=== PATIENT | female | born 1940 | race Caucasian/White ===

== ENCOUNTER 2021-04-02 10:03 | Emergency (ER) | payer MEDICARE ==
[~2021-04-02] VITALS: Ht 160 cm; Wt 57.0 kg
--- NOTE | 2021-04-02 10:51 | NUR ---
PT HAD AN EPISODE OF N/V/D THIS AM AND SHAKY. WAS ABLE TO DRINK FLUIDS. DENIES CP OR SOB. FROM [place], VISITING FAMILY. STATES SHE FEELS BETTER.
[2021-04-02] MEDS ORDERED: ONDANSETRON 2MG/ML, 2ML ONE (11:51)
--- NOTE | 2021-04-02 11:53 | NUR ---
PT TO BATHROOM W FAMILY, UA SAMPLE NEEDED
[2021-04-02] MEDS ORDERED: SODIUM CHLORIDE FLUSH 10ML SYR IVF ONE (12:00)
[2021-04-02] MEDS ORDERED: ONDANSETRON 2MG/ML, 2ML IVPush ONE (12:00)
[2021-04-02] MEDS ORDERED: SODIUM CHLORIDE 0.9% 1,000ML IVBOLUS ONE (12:00)
--- NOTE | 2021-04-02 12:08 | NUR ---
IV, IVF, UA SENT.
[2021-04-02 12:23] LABS: MEAN CORPUSCULAR HEMOGLOBIN 32.1 pg (27.0-34.8); MEAN CORPUSCULAR HGB CONC 33.8 g/dL (32.4-35.8); PLATELET COUNT 151 x10^3/uL (130-400); RED BLOOD COUNT 3.96 x10^6/uL (3.82-5.3); RED CELL DISTRIBUTION WIDTH 13.4 % (9.6-15.2)
[2021-04-02 12:26] LABS: MICROSCOPIC AUTO
[2021-04-02 12:29] LABS: ALBUMIN 3.3 g/dL (3.4-5.0); ANION GAP 4 mmol/L (5-15); CALCIUM 9.5 mg/dL (8.5-10.1); CHLORIDE 105 mmol/L (98-107)
--- NOTE | 2021-04-02 12:32 | NUR ---
REFUSING ZOFRAN, NO NAUSEA
[2021-04-02 12:33] LABS: ALANINE AMINOTRANSFERASE 33 U/L (12-78); ALKALINE PHOSPHATASE 103 U/L (45-117); BILIRUBIN,TOTAL 1.1 mg/dL (0.2-1.0); CREATININE 0.69 mg/dL (0.55-1.02); TOTAL PROTEIN 7.1 g/dL (6.4-8.2)
[2021-04-02 12:34] VITALS: BP 114/60
--- NOTE | 2021-04-02 12:34 | NUR ---
MD GARCIA AT BEDSIDE
[2021-04-02] MEDS ORDERED: CEFTRIAXONE 1,000 MG in DEXTROSE 5% 50 ML IVPB ONE (13:00)
[2021-04-02 13:03] LABS: <PLATELET ESTIMATE> ADEQUATE; <PLT MORPHOLOGY> NORMAL PLT MORPH; <RBC MORPHOLOGY> NORMAL; BAND#(MANUAL) 0.66 x10^3/uL; BANDS%(MANUAL) 7 % (0-7); BASOS#(MANUAL) 0.09 x10^3/uL (0-0.1); BASOS% (MANUAL) 1 % (0-1); LYMPH#(MANUAL) 1.03 x10^3/uL (1-3.4); LYMPHS% (MANUAL) 11 % (22-44); MONOS#(MANUAL) 0.19 x10^3/uL (0.3-2.7); MONOS% (MANUAL) 2 % (2-9); SEG#(MANUAL) 7.43 x10^3/uL (1.8-6.8); SEGS% (MANUAL) 79 % (42-75)
--- NOTE | 2021-04-02 13:11 | NUR ---
BLOOD CULTURES DRAWN PRIOR TO ABX INFUSION.
--- NOTE | 2021-04-02 13:53 | NUR ---
Courtney High RN. Waiting for dispo orders.
== END 2021-04-02 14:15 | disposition home or self-care (01) ==
LOC: ED 12:55
DX: N30.00 Acute cystitis without hematuria (principal); R10.9 Unspecified abdominal pain
CPT/HCPCS: 36415; 71045; 80053; 81001; 83605; 85025; 87040; 87077; 87086; 87186; 96361; 96365; 99284; J0696; J7030